=== PATIENT | male | born 1960 | race Caucasian/White ===

== ENCOUNTER 2016-12-06 12:30 | Emergency (ER) | payer SELFPAY ==
[~2016-12-06] VITALS: Ht 180.3 cm; Wt 89.0 kg
[2016-12-06 13:08] VITALS: BP 114/76
[2016-12-06] MEDS ORDERED: NOVOLIN,HU100 UNITS1 SC (14:42)
[2016-12-06] MEDS ORDERED: LANTUS 3 M100 UNITS1 SC (14:42)
[2016-12-06] MEDS ORDERED: MOTRIN800 MG PO (15:54)
== END 2016-12-06 16:04 | disposition home or self-care (01) ==
LOC: EME 12:30
DX: M25.551 Pain in right hip (principal); M25.561 Pain in right knee; E11.9 Type 2 diabetes mellitus without complications; W10.9XXA Fall (on) (from) unspecified stairs and steps, initial encounter
CPT/HCPCS: 99281; 99284; J1885